=== PATIENT | male | born 1995 | race African-American/Black ===

== ENCOUNTER 2020-02-12 11:33 | Emergency (ER) | payer OTHER, MEDICAID, SELFPAY ==
--- NOTE | ~2020-02-12 | XR_ITS ---
EXAMINATION: XR hand RT min 3V EXAM DATE: 02/12/2020 12:00 INDICATION: Initial encounter following injury, with pain of the right hand. TECHNIQUE: Right hand frontal, lateral and oblique projections obtained and reviewed. There is no pr ior study for comparison. FINDINGS: There is acute closed posttraumatic inferiorly angulated and displaced right 5th metacarpal neck fracture. There is overlying soft tissue swelling. No other suspicious findings. IMPRESSION: Acute right boxer's fracture. Reviewed, dictated and finalized at location A. STAFF
--- NOTE | ~2020-02-12 | XR_ITS ---
EXAMINATION: XR hand RT 2V EXAM DATE: 02/12/2020 13:35 INDICATION: Post-reduction . TECHNIQUE: Frontal and lateral projections of the right hand. There are no prior studies for compar kendrick. FINDINGS: Acute closed posttraumatic right 5th metacarpal neck fracture with some volar angulation. Displacement has been somewhat reduced. A splint has been applied. IMPRESSION: Partially reduced right boxer's fracture. Reviewed, dictated and finalized at location A. F COMMAND AND CONTROL OFFICER
[2020-02-12 11:39] VITALS: BP 151/95; PULSE 71; RESP 18; TEMP 36.8; O2SAT 100
--- NOTE | 2020-02-12 12:28 | ED.UPPEXIN ---
HPI - Extremity Injury (Upper) General Chief Complaint: Extremity Injury, Upper Stated Complaint: hand injury Time Seen by Provider: 02/12/20 12:10 Source: patient Mode of arrival: ambulatory Limitations: no limitations History of Present Illness HPI narrative: This is a 24 year old male that presents to the ER for right hand pain after an injury 2 days ago. Reports he punched a wall. Reports since he has had increasing pain and swelling in the hand. Denies decreased range of motion or numbness. Related Data Home Medications Medication Instructions Recorded Confirmed amlodipine 5 mg PO DAILY 02/12/20 02/12/20 Allergies Allergy/AdvReac Type Severity Reaction Status Date / Time shellfish derived Allergy Unknown Swelling Verified 02/12/20 11:42 Review of Systems Review of Systems: Narrative: CONSTITUTIONAL: Denies fever MUSCULOSKELETAL: Reports joint pain, and myalgia. NEUROLOGIC: Denies numbness All systems reviewed & are unremarkable except as noted in HPI and below PMFSH Past Medical History Medical History (Updated 02/12/20 @ 15:00 by Millicent Mccullough PA-C) History of hypertension Social History Social History (Updated 02/12/20 @ 14:56 by Millicent Mccullough PA-C) Smoking status: Current every day smoker Gender identity (if verbalized by the patient): Male Exam Narrative: Exam Narrative: GENERAL: Well-appearing, well-nourished, and in no acute distress. HEAD: Normocephalic, atraumatic. EYES: EOMI. EXTREMITIES: Normal range of motion. Mild edema about the right hand over the fifth metacarpal dorsal surface, tender to palpation. Normal radial pulses. Normal sensation SKIN: Warm, dry, no rash. NEURO: No focal deficits. Alert and oriented x3. PSYCH: Normal mood and affect Course Vital Signs Vital signs: Vital Signs Temperature 98.2 F 02/12/20 11:39 Pulse Rate 71 02/12/20 11:39 Respiratory Rate 18 02/12/20 11:39 Blood Pressure 151/95 H 02/12/20 11:39 Pulse Oximetry 100 02/12/20 11:39 Temperature 98.2 F 02/12/20 11:39 Pulse Rate 71 02/12/20 11:39 Respiratory Rate 18 02/12/20 11:39 Blood Pressure 151/95 H 02/12/20 11:39 Pulse Oximetry 100 02/12/20 11:39 Procedures Orthopedic Fracture Reduction Fracture #1: Fracture Reduction date: 02/12/20 Fracture Reduction time: 14:56 Side: right Fracture Reduction Location: metacarpal Analgesia: nerve block Pre-Procedure Neuro Vascular Exam: normal Technique: direct manipulation Post Reduction X-rays Demonstrate: acceptable reduction Post-reduction neuro exam: intact Post-reduction vascular exam: intact Splint Applied: Yes Patient Tolerated Procedure: well and no complications Orthopedic Splinting/Casting Injury #1: Splinting/Casting Date: 02/12/20 Splinting/Casting Time: 14:59 Side: right Upper Extremity Injury Location: hand Upper Extremity Immobilizer: ulnar gutter Splint: customized in ED OCL: ulnar gutter Pre-Procedure Neuro Vascular Exam: normal Post-Procedure Neuro Vascular Exam: normal MDM - Extremity Injury (Upper) MDM Narrative Medical decision making narrative: Patient presents the emergency department for hand injury sustained 2 days ago. Right hand x-ray shows a boxer's fracture. Did attempt at reduction with postreduction x-ray showing partial reduction. Patient was placed in a splint. Spoke with Dr. Baron about patient and work-up who will follow-up in clinic. Patient is stable and felt appropriate for further outpatient evaluation. He was given warnings to return to the ER Imaging Data Radiologist's impression: ITS Impressions Hand X-Ray 02/12/20 12:03 IMPRESSION: Acute right boxer's fracture. Hand X-Ray 02/12/20 13:36 IMPRESSION: Partially reduced right boxer's fracture. Critical Care Time Critical Care Time Critical Care Arthur
[2020-02-12] MEDS: HYDROcodone/acetaminophen (*CRX) 5-325 MG TABLET 1 TAB PO (12:33)
[2020-02-12 15:15] VITALS: BP 148/88; PULSE 80; RESP 20; O2SAT 99
== END 2020-02-12 15:16 | disposition home or self-care (01) ==
PROVIDERS: Emergency Provider Emergency Medicine
DX: S62.336A Displaced fracture of neck of fifth metacarpal bone, right hand, initial encounter for closed fracture (principal); I10 Essential (primary) hypertension; F17.200 Nicotine dependence, unspecified, uncomplicated; W22.09XA Striking against other stationary object, initial encounter
CPT/HCPCS: 26605; 73120; 73130; 99285; A9270

== ENCOUNTER 2020-10-30 20:59 | Emergency (ER) | payer BC, SELFPAY ==
--- NOTE | ~2020-10-30 | CT_ITS ---
EXAMINATION: CT abdomen pelvis wo con DATE: 10/30/2020 23:03 INDICATION: Left flank pain for 7 days TECHNIQUE: Computed tomography (CT) of the abdomen and pelvis was performed without intravenous contr ast. Automated exposure control and iterative reconstruction technique were employed. Exam dose: 128 8.84 mGy-cm total exam DLP. COMPARISON: None. FINDINGS: The is an lung bases are clear. Normal heart size. No pericardial or pleural effusion. The liver, gallbladder, bile ducts, spleen, pancreas, pancreatic duct, and adrenal glands and kidneys are unremarkable. No urinary tract calculus or hydroureteronephrosis Normal caliber of the abdominal aorta. No intraperitoneal or retroperitoneal or pelvic mass lesion or adenopathy or ascites. Normal appendix. No bowel obstruction, bowel wall thickening, pneumatosis or intraperitoneal free air . Small fat-containing umbilical hernia. Degenerative spurring of the lower thoracic spine. IMPRESSION: No urinary tract calculus or hydroureteronephrosis Reviewed, dictated and finalized at Location [facility]. Reviewed, dictated and finalized at location A.
[2020-10-30 21:02] VITALS: BP 140/90; PULSE 93; RESP 16; TEMP 36.8; O2SAT 100
[2020-10-30 21:21] LABS: Add Urine Microscopic? NO; Appearance Urine Clear (Clear); Bilirubin Urine Negative (Negative); Blood Urine Negative (Negative); Color Urine Colorless (Yellow); Glucose Urine UA Negative (Negative); Ketones Urine Negative (Negative); Leukocyte Esterase Ur Negative LEU/UL (Negative); Nitrate Urine Negative (Negative); Protein Urine Negative (Negative); Specific Grav Ur 1.005 (1.001-1.035); Urobilinogen Urine Negative mg/dL (<2.0)
[2020-10-30 22:20] VITALS: BP 159/97; PULSE 97; RESP 18; O2SAT 99
--- NOTE | 2020-10-30 23:01 | PC.NURSE ---
Pt to CT via stretcher at this time.
--- NOTE | 2020-10-30 23:21 | ED.GENADULT ---
HPI - General Adult General Chief complaint: Urogenital-Male Stated complaint: poss uti Time Seen by Provider: 10/30/20 22:46 History of Present Illness HPI narrative: Patient a 25-year-old gentleman who presents the emergency department with chief complaint of tingling of the tip of his penis patient reports that for several days he has noticed that intermittently he is having a tingling sensation on the tip of his penis the patient states he has had no penile discharge but reports he has had one prior episode of a possible STI in the past patient states that he also had a urinary tract infection when this of the event occurred patient states that while this is been going on he is also had some discomfort in his left flank and it radiates to the left lower quadrant patient denies nausea vomiting denies fever chills Related Data Home Medications Medication Instructions Recorded Confirmed amlodipine 5 mg PO DAILY 02/12/20 02/12/20 Allergies Allergy/AdvReac Type Severity Reaction Status Date / Time shellfish derived Allergy Unknown Swelling Verified 10/30/20 22:23 Review of Systems Review of Systems: A 10 system review of systems was completed on the patient and is negative except for what is stated in the HPI. Nursing and ancillary documentation was reviewed. [facility] Past Medical History Medical History History of hypertension Social History Social History Smoking status: Current every day smoker Gender identity (if verbalized by the patient): Male Exam Narrative: GENERAL: Well-appearing, well-nourished, and in no acute distress. HEAD: Normocephalic, atraumatic. EYES: PERRLA and EOMI. ENT: Nares clear, no rhinorrhea or epistaxis. Mucous membranes moist. NECK: Supple. CHEST: Clear to auscultation. No respiratory distress. HEART: Regular rate and rhythm. No murmur heard. Normal peripheral pulses. ABDOMEN: Soft, nontender, nondistended, normal active bowel sounds. EXTREMITIES: Normal range of motion. No edema. SKIN: Warm, dry, no rash. NEURO: No focal deficits. Alert and oriented x3. PSYCH: Normal mood and affect. Course Vital Signs Vital signs: Vital Signs Temperature 36.8 C 10/30/20 21:02 Pulse Rate 93 10/30/20 21:02 Respiratory Rate 16 10/30/20 21:02 Blood Pressure 140/90 10/30/20 21:02 Pulse Oximetry 100 10/30/20 21:02 Temperature 36.8 C 10/30/20 21:02 Pulse Rate 97 10/30/20 22:20 Respiratory Rate 18 10/30/20 22:20 Blood Pressure 159/97 H 10/30/20 22:20 Pulse Oximetry 99 10/30/20 22:20 Medical Decision Making Vital Signs Vital Signs: Vital Signs Temperature 36.8 C 10/30/20 21:02 Pulse Rate 93 10/30/20 21:02 Respiratory Rate 16 10/30/20 21:02 Blood Pressure 140/90 10/30/20 21:02 Pulse Oximetry 100 10/30/20 21:02 Temperature 36.8 C 10/30/20 21:02 Pulse Rate 97 10/30/20 22:20 Respiratory Rate 18 10/30/20 22:20 Blood Pressure 159/97 H 10/30/20 22:20 Pulse Oximetry 99 10/30/20 22:20 Lab Data Result diagrams: 10/30/20 23:25 10/30/20 23:25 Labs: Lab Results 10/30/20 10/30/20 10/30/20 Range/Units 21:09 23:25 23:25 WBC 12.1 H (4.5-10.0) K/mm3 RBC 4.89 (4.6-6.20) M/mm3 Hgb 14.8 (14.0-18.0) g/dL Hct 44.1 (42.0-52.0) % MCV 90.2 (80-100) fl MCH 30.3 (26-34) pg MCHC 33.6 (32-36) g/dl RDW 12.3 (11.5-14.5) % Plt Count 256 (150-375) k/mm3 MPV 11.2 H (7.4-10.4) fl Immature Gran % (Auto) 0.3 (0-0.5) % Neut % (Auto) 68.7 (45.5-73.1) % Lymph % (Auto) 21.0 (18.3-44.2) % [place] % (Auto) 6.4 (2.6-8.5) % Eos % (Auto) 3.1 (0-4.4) % Baso % (Auto) 0.5 (0.2-1.2) % Lymph # (Auto) 2.54 (0.9-3.2) K/mm3 [place] # (Auto) 0.8 H (0.1-0.6) K/mm3 Eos # (Auto) 0.4 H (0-0.3) K/mm3 Baso # (Auto) 0
[2020-10-30 23:37] LABS: Basophils Absolute Auto 0.1 K/mm3 (0.0-0.1); Basophils Percent Auto 0.5 % (0.2-1.2); Eosinophils Absolute Auto 0.4 K/mm3 (0-0.3); Eosinophils Percent Auto 3.1 % (0-4.4); Hematocrit 44.1 % (42.0-52.0); Hemoglobin 14.8 g/dL (14.0-18.0); Immature Granulocyte Absolute 0.04 K/mm3 (0.00-0.031); Immature Granulocyte Percent A 0.3 % (0-0.5); Lymphocytes Absolute Auto 2.54 K/mm3 (0.9-3.2); Mean Corpuscular HGB Conc 33.6 g/dl (32-36); Mean Corpuscular Hemoglobin 30.3 pg (26-34); Mean Corpuscular Volume 90.2 fl (80-100); Mean Platelet Volume 11.2 fl (7.4-10.4); Monocytes Absolute Auto 0.8 K/mm3 (0.1-0.6); Monocytes Percent Auto 6.4 % (2.6-8.5); Neutrophils Absolute Auto 8.3 K/mm3 (1.3-6.7); Neutrophils Percent Auto 68.7 % (45.5-73.1); Platelet Count Result 256 k/mm3 (150-375); Red Blood Count 4.89 M/mm3 (4.6-6.20); Red Cell Distribution Width 12.3 % (11.5-14.5); White Blood Count 12.1 K/mm3 (4.5-10.0)
[2020-10-30 23:49] LABS: Alanine Aminotransferase 37 U/L (4-50); Albumin Level 4.8 g/dL (3.5-5.1); Alkaline Phosphatase 88 U/L (38-126); Anion Gap 12 mmol/L (8-16); Aspartate Amino Transferase 40 U/L (17-59); Bilirubin,Total 0.4 mg/dL (0.2-1.3); Blood Urea Nitrogen 17 mg/dL (9-20); Calcium 9.8 mg/dL (8.4-10.2); Carbon Dioxide 26 mmol/L (22-30); Chloride 102 mmol/L (98-107); Estimated CRCL calculation 98 ml/min; Estimated Glomerular Filt Rate > 60; Glucose 104 mg/dL (65-110); Lipase 47 U/L (23-300); Potassium 4.3 mmol/L (3.4-5.0); Sodium 140 mmol/L (137-145)
[2020-10-31] MEDS: cefTRIAXone 1 GM VIAL 0.5 GM IM (01:01)
[2020-10-31] MEDS: LIDOCAINE HCL 1% LOCAL INJ 20 ML VIAL (01:01)
[2020-10-31 01:11] VITALS: BP 151/94; PULSE 82; RESP 16; O2SAT 98
== END 2020-10-31 01:15 | disposition home or self-care (01) ==
PROVIDERS: Family Medicine; Emergency Provider Emergency Medicine
DX: R30.0 Dysuria (principal); F17.210 Nicotine dependence, cigarettes, uncomplicated
CPT/HCPCS: 36415; 74176; 80053; 81003; 83690; 85025; 87491; 87591; 96372; 99284; J0696

== ENCOUNTER 2021-05-10 13:52 | Inpatient (IN) | payer BC, SELFPAY ==
[2021-05-10] VITALS (21 sets, daily range): BP systolic 135–173; BP diastolic 81–117; PULSE 101–123; RESP 13–31; TEMP 36.8–37.6; O2SAT 91–100; BMI 38.9
--- NOTE | ~2021-05-10 | CT_ITS ---
EXAMINATION: CT diagnostic chest wo con EXAM DATE: 05/10/2021 20:57 INDICATION: Shortness of breath for one week. Hypoxia, wheezing, cough. TECHNIQUE: Spiral CT of the chest without contrast. Axial, coronal and sagittal images of the chest were reviewed. Coronal maximum intensity pixel images of chest reviewed. The dose-length product ( DLP) for this examination was 601.44 mGy-cm. The exposure was tailored according to patient size (au to mA exposure control), and iterative reconstruction (ASIR) was used as additional dose reduction te [place]nique. There is no prior study for comparison. FINDINGS: Some regions of vague peripheral right lung groundglass airspace disease, nonspecific pneu monitis but most likely viral pneumonia. There are no pleural or pericardial effusions. Tracheobro nchial tree is patent. There is no mediastinal, hilar or axillary lymphadenopathy. There is no pn eumothorax. Heart normal in size. No evidence of coronary arterial calcification. Upper abdomen is unremarkable. There is mild thoracic spondylosis without osteoblastic or osteolytic lesions iden tified. IMPRESSION: Scattered vague regions right lung peripheral groundglass airspace disease suspicious for COVID pneumonia. Clinical correlation. Reviewed, dictated and finalized at location G.
--- NOTE | ~2021-05-10 | XR_ITS ---
EXAMINATION: XR chest 2V 05/10/2021 14:27 INDICATION: Cough and congestion. Chest pain. PROCEDURE: 2 view chest COMPARISON: No prior studies for comparison. FINDINGS: The lungs are clear. The cardiomediastinal silhouette is within normal limits. There are no pleural effusions. There is no pneumothorax suspected. IMPRESSION: 1: NO ACUTE CARDIOPULMONARY DISEASE. Reviewed, dictated and finalized at location A.
[2021-05-10] MEDS: IPRATROPIUM BR 0.02% INH SOLN 0.5 MG/2.5 ML VIAL INHALATION ×2 (15:25→19:21)
[2021-05-10] MEDS: ALBUTEROL SULFATE NEB 2.5 MG/0.5 ML INH 5 MG INHALATION ×2 (15:25→19:21)
[2021-05-10] MEDS: IPRATROPIUM BR 0.02% INH SOLN 0.5 MG/2.5 ML VIAL 1.5 MG INHALATION (16:09)
[2021-05-10] MEDS: ALBUTEROL SULFATE NEB 2.5 MG/0.5 ML INH 15 MG INHALATION (16:10)
[2021-05-10] MEDS: predniSONE 20 MG TABLET 60 MG PO (16:22)
--- NOTE | 2021-05-10 16:46 | ED.SOB ---
HPI - SOB/Dyspnea General Chief Complaint: Shortness of Breath/Dyspnea Stated Complaint: hard time breathing Time Seen by Provider: 05/10/21 15:05 History of Present Illness HPI Narrative: Patient is a 25-year-old male who presents ER with dyspnea. Ongoing over the last week. Associate with cough. Worsening over last 2 days. Swab himself for Covid yesterday and it was negative. Denies fevers or chills. No known sick contacts. No alleviating factors. Dyspnea is worse with exertion but does have some at rest. Related Data Home Medications Medication Instructions Recorded Confirmed No Home Medications 05/10/21 05/10/21 Allergies Allergy/AdvReac Type Severity Reaction Status Date / Time shellfish derived Allergy Unknown Swelling Verified 05/10/21 15:21 Review of Systems Review of Systems: All systems reviewed & are unremarkable except as noted in HPI and below Constitutional: Constitutional: Denies chills, Denies fever(s) and Denies weakness ENT: Denies nasal congestion and Denies sore throat Cardiovascular: Cardiovascular: Denies chest pain, Denies rapid heart rate and Denies radiating jaw, neck or arm pain Respiratory: Respiratory: Reports cough, Reports dyspnea and Reports wheezing Gastrointestinal: Gastrointestinal: Denies abdominal pain, Denies nausea and Denies vomiting PMFSH Past Medical History Medical History History of hypertension Family History Family History (Updated 05/10/21 @ 19:54 by Merle Quiroz RN) Mother Hypertension Sibling Hypertension Grandparent Diabetes mellitus Social History Social History Smoking status: Former smoker Alcohol intake: never Substance use: never Gender identity (if verbalized by the patient): Male Spiritual care concerns: No Exam Narrative: GENERAL: Well-appearing, well-nourished, and in no acute distress. HEAD: Normocephalic, atraumatic. ENT: Mucous membranes moist. CHEST: Wheezing in the anterior and posterior lungs on left side. Diminished lung sounds on the right. HEART: Regular rate and rhythm. Normal peripheral pulses. ABDOMEN: Soft, nontender, nondistended. EXTREMITIES: Normal range of motion. No edema. SKIN: Warm, dry, no rash. NEURO: No focal deficits. Alert and oriented x3. PSYCH: Normal mood and affect. Course Course Emergency Course: Patient still with wheezing after the nebulizer treatment. An hour-long was then ordered. Patient now has wheezing bilaterally. Patient is also dropping his pulse oximeter readings down into the upper 80s while sitting in bed. I have ambulated the patient personally in ER and the lowest his oxygen saturation is gotten was 87%. Recommend admission for observation and continuous nebulizer treatments. Patient was placed on 1 L of nasal cannula oxygen. Vital Signs Vital signs: Vital Signs Temperature 98.2 F 05/10/21 14:04 Pulse Rate 123 H 05/10/21 14:04 Respiratory Rate 19 05/10/21 14:04 Blood Pressure 147/81 H 05/10/21 14:04 Pulse Oximetry 93 05/10/21 14:04 Temperature 98 F 05/11/21 04:00 Pulse Rate 92 05/11/21 07:18 Respiratory Rate 17 05/11/21 07:18 Blood Pressure 126/71 05/11/21 04:00 Pulse Oximetry 93 05/11/21 07:17 MDM - SOB/Dyspnea Lab Data Result diagrams: 05/11/21 05:37 05/11/21 05:37 Labs: Lab Results 05/10/21 05/10/21 05/10/21 Range/Units 17:59 17:59 17:59 WBC 15.2 H (4.5-10.0) K/mm3 RBC 5.15 (4.6-6.20) M/mm3 Hgb 15.6 (14.0-18.0) g/dL Hct 46.2 (42.0-52.0) % MCV 89.7 (80-100) fl MCH 30.3 (26-34) pg MCHC 33.8 (32-36) g/dl RDW 12.5 (11.5-14.5) % Plt Count 277 (150-375) k/mm3 MPV 10.5 H (7.4-10.4) fl Immature Gran % (Auto) 0.5 (0-0.5) % Neut % (Auto) 76.3 H (45.5-73.1) % Lymph % (Auto) 12.6 L (18.3-44.2) % [place]
[2021-05-10 18:05] LABS: Basophils Absolute Auto 0.1 K/mm3 (0.0-0.1); Basophils Percent Auto 0.6 % (0.2-1.2); Eosinophils Absolute Auto 0.8 K/mm3 (0-0.3); Eosinophils Percent Auto 5.4 % (0-4.4); Hematocrit 46.2 % (42.0-52.0); Hemoglobin 15.6 g/dL (14.0-18.0); Immature Granulocyte Absolute 0.07 K/mm3 (0.00-0.031); Immature Granulocyte Percent A 0.5 % (0-0.5); Lymphocytes Absolute Auto 1.92 K/mm3 (0.9-3.2); Lymphocytes Percent Auto 12.6 % (18.3-44.2); Mean Corpuscular HGB Conc 33.8 g/dl (32-36); Mean Corpuscular Hemoglobin 30.3 pg (26-34); Mean Corpuscular Volume 89.7 fl (80-100); Mean Platelet Volume 10.5 fl (7.4-10.4); Monocytes Absolute Auto 0.7 K/mm3 (0.1-0.6); Monocytes Percent Auto 4.6 % (2.6-8.5); Neutrophils Absolute Auto 11.6 K/mm3 (1.3-6.7); Neutrophils Percent Auto 76.3 % (45.5-73.1); Platelet Count Result 277 k/mm3 (150-375); Red Blood Count 5.15 M/mm3 (4.6-6.20); Red Cell Distribution Width 12.5 % (11.5-14.5); White Blood Count 15.2 K/mm3 (4.5-10.0)
[2021-05-10 18:18] LABS: Anion Gap 9 mmol/L (8-16); Blood Urea Nitrogen 13 mg/dL (9-20); Calcium 9.2 mg/dL (8.4-10.2); Carbon Dioxide 28 mmol/L (22-30); Chloride 101 mmol/L (98-107); Estimated CRCL calculation 124 ml/min; Estimated Glomerular Filt Rate > 60; Glucose 130 mg/dL (65-110); Potassium 3.6 mmol/L (3.4-5.0); Sodium 138 mmol/L (137-145)
[2021-05-10 18:46] LABS: SARS-CoV-2 RNA PCR Negative
--- NOTE | 2021-05-10 19:37 | PM.IMHP ---
H&P: HPI History of Present Illness Date/Time: 05/10/21 19:37 Chief Complaint: 25 years old male presented to the hospital with shortness of breath started 1 week ago worsening gradually associated with cough denies fever or chills shortness of breath worsening with activity patient had COVID-19 test at home was negative COVID-19 test ER was negative patient was found to have hypoxia on presentation required oxygen and nebulizer treatment patient condition did not improve decision was made to proceed with admission for further evaluation and treatment of wheezing associated with hypoxia Patient has history of hypertension he ran out of his medication Review of Systems Review of Systems: All systems reviewed & are unremarkable except as noted in HPI and below PMFSH Past Medical History Medical History History of hypertension Family History Family History (Updated 05/10/21 @ 19:54 by Merle Quiroz RN) Mother Hypertension Sibling Hypertension Grandparent Diabetes mellitus Social History Social History Smoking status: Former smoker Alcohol intake: never Substance use: never Gender identity (if verbalized by the patient): Male Spiritual care concerns: No Meds Home Medications and Allergies Home Medications Medication Instructions Recorded Confirmed Type No Home Medications 05/10/21 05/10/21 History Allergies Allergy/AdvReac Type Severity Reaction Status Date / Time shellfish derived Allergy Unknown Swelling Verified 05/10/21 15:21 Vital Signs Vital Signs - 24 hr 05/10/21 14:04 05/10/21 15:21 05/10/21 15:22 Temperature 98.2 F Pulse Rate 123 H 117 H 111 H Respiratory Rate 19 16 Blood Pressure 147/81 H Pulse Oximetry 93 92 05/10/21 15:23 05/10/21 15:26 05/10/21 15:30 Temperature Pulse Rate 113 H 116 H 113 H Respiratory Rate 20 16 13 Blood Pressure 158/117 H Pulse Oximetry 92 100 05/10/21 15:32 05/10/21 16:10 05/10/21 16:30 Temperature Pulse Rate 101 H 109 H Respiratory Rate 18 18 Blood Pressure 173/94 H Pulse Oximetry 100 99 05/10/21 17:00 05/10/21 17:31 05/10/21 17:49 Temperature Pulse Rate 119 H 111 H Respiratory Rate 31 H 22 H Blood Pressure Pulse Oximetry 94 91 92 05/10/21 17:51 05/10/21 18:01 05/10/21 18:02 Temperature Pulse Rate 117 H 111 H 118 H Respiratory Rate 16 18 21 H Blood Pressure 155/102 H 135/97 H Pulse Oximetry 94 93 93 05/10/21 18:13 05/10/21 18:24 05/10/21 19:21 Temperature Pulse Rate 110 H Respiratory Rate 18 Blood Pressure Pulse Oximetry 94 97 94 05/10/21 19:29 Temperature Pulse Rate 115 H Respiratory Rate 20 Blood Pressure Pulse Oximetry Exam Const: General: in distress HENMT: Mouth: Yes dry mucous membranes Eyes: Sclera: sclerae normal Neck: Neck: no JVD Resp: Auscultation: wheezes and diminished lung sounds Cardio: Rate: regular rate and tachycardic Rhythm: regular rhythm GI: Inspection: non-distended GI Palp: Yes Soft to palpation Auscultation: normal bowel sounds Skin: General skin exam: normal color Neuro: Speech: normal speech Motor exam (neuro): 5/5 motor strength present throughout Sensory Exam: normal sensation Extrem: General: normal to inspection Right upper extremity: normal to inspection Left upper extremity: normal to inspection Right lower extremity: normal to inspection Left lower extremity: normal to inspection Psych: Mental Status: mental status grossly normal H&P: Results Labs Labs: Short CBC 05/10/21 Range/Units 17:59 WBC 15.2 H (4.5-10.0) K/mm3 Hgb 15.6 (14.0-18.0) g/dL Hct 46.2 (42.0-52.0) % Plt Count 277 (150-375) k/mm3 [facility] 05/10/21 17:59 Sodium 138 Potassium 3.6 Chloride 101 Carbon Dioxide 28 BUN 13 Creatinine 1.10 Glucose 130 H Calcium 9.2
--- NOTE | 2021-05-10 19:49 | ADMGEN ---
This patient, Robbie Saldaña, was admitted to 2 Medical Room 259-01. Patient/family oriented to hospital policies and general routines including ID bracelet, bed and alarms, visiting hours, pain management, procedures, bathroom and other care routines, personal items, smoking policy, room service/diet, and visiting hours. Information on how to activate the Rapid Response Team has been discussed. Patient/Family are encouraged to report perceived risks to care and to ask questions if they do not understand what they are told or what they should do.
[2021-05-10] MEDS: SODIUM CHLORIDE 0.9% IV 1,000 ML 100 ML IV CONT (20:09)
[2021-05-10 20:42] LABS: NT Pro B Type Natriuretic Pept < 11 pg/mL (5-100)
[2021-05-10] MEDS: amLODIPine BESYLATE 5 MG TABLET PO (21:05)
[2021-05-10] MEDS: cefTRIAXone 2 GM in SODIUM CHLORIDE 0.9% IV 100 ML 200 ML IVPB (21:05)
[2021-05-10] MEDS: guaiFENesin 12 HR 600 MG TABCR PO (21:06)
[2021-05-10] MEDS: methylPREDNISolone SOD SUCC 40 MG VIAL IV PUSH (21:06)
[2021-05-11] VITALS (18 sets, daily range): BP systolic 126–174; BP diastolic 71–93; PULSE 87–126; RESP 14–20; TEMP 36.3–37.1; O2SAT 91–100
[2021-05-11] MEDS: ALBUTEROL SULFATE NEB 2.5 MG/0.5 ML INH 5 MG INHALATION ×4 (02:07→20:11)
[2021-05-11] MEDS: IPRATROPIUM BR 0.02% INH SOLN 0.5 MG/2.5 ML VIAL INHALATION ×4 (02:07→20:11)
[2021-05-11] MEDS: methylPREDNISolone SOD SUCC 40 MG VIAL IV PUSH ×3 (06:01→21:04)
[2021-05-11] MEDS: SODIUM CHLORIDE 0.9% IV 1,000 ML 100 ML IV CONT ×2 (06:01→15:22)
[2021-05-11 06:09] LABS: Basophils Percent Auto 0.2 % (0.2-1.2); Eosinophils Absolute Auto 0.1 K/mm3 (0-0.3); Eosinophils Percent Auto 0.4 % (0-4.4); Hematocrit 45.6 % (42.0-52.0); Hemoglobin 15.1 g/dL (14.0-18.0); Immature Granulocyte Absolute 0.15 K/mm3 (0.00-0.031); Immature Granulocyte Percent A 0.9 % (0-0.5); Lymphocytes Absolute Auto 1.24 K/mm3 (0.9-3.2); Lymphocytes Percent Auto 7.1 % (18.3-44.2); Mean Corpuscular HGB Conc 33.1 g/dl (32-36); Mean Corpuscular Hemoglobin 30.1 pg (26-34); Mean Platelet Volume 11.1 fl (7.4-10.4); Monocytes Absolute Auto 0.4 K/mm3 (0.1-0.6); Neutrophils Absolute Auto 15.7 K/mm3 (1.3-6.7); Neutrophils Percent Auto 89.4 % (45.5-73.1); Platelet Count Result 295 k/mm3 (150-375); Red Blood Count 5.01 M/mm3 (4.6-6.20); Red Cell Distribution Width 12.6 % (11.5-14.5); White Blood Count 17.5 K/mm3 (4.5-10.0)
[2021-05-11 06:13] LABS: Alanine Aminotransferase 29 U/L (4-50); Albumin Level 4.6 g/dL (3.5-5.1); Alkaline Phosphatase 98 U/L (38-126); Anion Gap 11 mmol/L (8-16); Aspartate Amino Transferase 33 U/L (17-59); Bilirubin,Total 0.4 mg/dL (0.2-1.3); Blood Urea Nitrogen 14 mg/dL (9-20); Calcium 9.2 mg/dL (8.4-10.2); Carbon Dioxide 24 mmol/L (22-30); Chloride 103 mmol/L (98-107); Estimated CRCL calculation 148 ml/min; Estimated Glomerular Filt Rate > 60; Glucose 165 mg/dL (65-110); Potassium 4.3 mmol/L (3.4-5.0); Sodium 138 mmol/L (137-145)
[2021-05-11] MEDS: amLODIPine BESYLATE 5 MG TABLET PO (09:18)
[2021-05-11] MEDS: guaiFENesin 12 HR 600 MG TABCR PO ×2 (09:19→21:03)
[2021-05-11] MEDS: ENOXAPARIN 40 MG/0.4 ML SYRINGE SUB-Q (09:20)
[2021-05-11 10:29] LABS: Lactate Dehydrogenase 333 U/L (313-618)
[2021-05-11 10:50] LABS: Erythrocyte Sedimentation Rate 12 mm/hr (0-20)
--- NOTE | 2021-05-11 12:28 | PM.IMPN ---
Progress Note: A&P Assessment and Plan (1) Shortness of breath: Code(s): R06.02 - Shortness of breath Status: Acute Assessment and Plan: - Concern for possible COVID due to Ground glass appearance on the CT Scan. - Continue Nebulizer treatments, steroids, and antibiotics - Blood cultures pending. - Inflammatory markers of Ferritin, LDH, CRP, and Sed rate were performed and are otherwise negative. - Urine for Legionella pending - Flu swab pending - COVID is still pending. - Apnea Link ordered as pt is noted to be apneic on my entry into the room. (2) Acute hypoxemic respiratory failure: Code(s): J96.01 - Acute respiratory failure with hypoxia Status: Acute Assessment and Plan: - Etiology viral vs. bacterial. - Concern for possible COVID due to Ground glass appearance on the CT Scan. - Continue Nebulizer treatments, steroids, and antibiotics - Blood cultures pending. - Inflammatory markers of Ferritin, LDH, CRP, and Sed rate were performed and are otherwise negative. - Urine for Legionella pending - Flu swab pending - COVID is still pending. - Apnea Link ordered as pt is noted to be apneic on my entry into the room. (3) Tachycardia: Code(s): R00.0 - Tachycardia, unspecified Status: Acute Assessment and Plan: - Secondary to above monitor pending CT scan of the chest - May need Beta Blockade as pressures are also elevated and the pt. is an obese Male. Will monitor. - In addition, will consider ECHO. (4) Hypertension: Qualifiers: Hypertension type: unspecified Qualified Code(s): I10 - Essential (primary) hypertension Code(s): I10 - Essential (primary) hypertension Status: Acute Assessment and Plan: - AA Male with persistently elevated BP's. Start CCB, Amlodipine at 5 mg po daily. - Continue to monitor. Time Spent With Patient Time with patient: 15 - 25 minutes Subjective Date/time seen: 05/11/21 0900 This pt. was examined at the bedside in interval assessment. He states he is feeling a little better today. He remains on 1L oxygen. Upon my entry into the room, the pt. was sleeping and was noted to have likely ROB with evidence of him gasping and snoring. His WBC today have trended upward and he has remained intermittently tachycardic and also has elevated BP. He will be started on BP meds today and he will have additional testing. He denies CP, N/V/D, and states he is not as dyspneic as he has been. He denies a cough at this time. Review of Systems Review of Systems: A full 12 point ROS was performed and is otherwise negative with exception of what is noted in HPI. All systems reviewed & are unremarkable except as noted in HPI and below Exam Const: General: no acute distress Other: Pt. noted to have what appears to be sleep apnea upon my entry into the room HENMT: Mouth: Yes moist mucous membranes Eyes: Sclera: sclerae normal Neck: Neck: supple and no JVD Lymphatic: lymphadenopathy not noted Resp: Auscultation: rhonchi and diminished lung sounds Cardio: Rate: tachycardic Rhythm: regular rhythm GI: GI Palp: Yes Soft to palpation and No Tenderness to palpation present (GI) Auscultation: normal bowel sounds Skin: General skin exam: normal color and no rashes or lesions noted Neuro: General: gait normal Speech: normal speech Motor exam (neuro): 5/5 motor strength present throughout and Normal motor muscle tone present throughout Extrem: General: normal to inspection Right upper extremity: normal to inspection Left upper extremity: normal to inspection Right lower extremity: normal to inspection Left lower extremity: normal to inspection Psych: Mental Status: mental status grossly normal Thought content: Yes Normal thought content present Objective Data Vital Signs Vital Signs: Vital Signs - 24 hr 05/10/21 14:04 05/10/21 15:21 05/10/21 15:22 Temperature 98.2 F Pulse Rate 123 H 117 H 111
--- NOTE | 2021-05-11 14:04 | PC.NURSE ---
On 05/11/21, the student, [Jonnie Sahu & Ada Estrada], provided care and completed [facility] documentation on this patient. I have reviewed the student's documentation and agree with the findings.
[2021-05-11] MEDS: cefTRIAXone 2 GM in SODIUM CHLORIDE 0.9% IV 100 ML 200 ML IVPB (21:03)
[2021-05-12] VITALS (8 sets, daily range): BP systolic 139–149; BP diastolic 68–86; PULSE 81–118; RESP 17–20; TEMP 35.8–36.3; O2SAT 94–97
[2021-05-12] MEDS: SODIUM CHLORIDE 0.9% IV 1,000 ML 100 ML IV CONT (00:24)
--- NOTE | 2021-05-12 03:22 | PCRCNOTE ---
Scheduled UPD for 0200 on 05/12 was not given due to pt being on apnea link.
[2021-05-12] MEDS: methylPREDNISolone SOD SUCC 40 MG VIAL IV PUSH (05:53)
[2021-05-12 05:55] LABS: Basophils Absolute Auto 0.1 K/mm3 (0.0-0.1); Basophils Percent Auto 0.2 % (0.2-1.2); Hematocrit 43.8 % (42.0-52.0); Hemoglobin 14.7 g/dL (14.0-18.0); Immature Granulocyte Absolute 0.53 K/mm3 (0.00-0.031); Immature Granulocyte Percent A 1.8 % (0-0.5); Lymphocytes Absolute Auto 1.72 K/mm3 (0.9-3.2); Lymphocytes Percent Auto 5.7 % (18.3-44.2); Mean Corpuscular HGB Conc 33.6 g/dl (32-36); Mean Corpuscular Hemoglobin 30.6 pg (26-34); Mean Corpuscular Volume 91.1 fl (80-100); Mean Platelet Volume 10.8 fl (7.4-10.4); Monocytes Absolute Auto 1.3 K/mm3 (0.1-0.6); Monocytes Percent Auto 4.4 % (2.6-8.5); Neutrophils Absolute Auto 26.6 K/mm3 (1.3-6.7); Neutrophils Percent Auto 87.9 % (45.5-73.1); Platelet Count Result 305 k/mm3 (150-375); Red Blood Count 4.81 M/mm3 (4.6-6.20); Red Cell Distribution Width 12.9 % (11.5-14.5); White Blood Count 30.3 K/mm3 (4.5-10.0)
[2021-05-12 06:10] LABS: Alanine Aminotransferase 32 U/L (4-50); Albumin Level 4.5 g/dL (3.5-5.1); Alkaline Phosphatase 95 U/L (38-126); Anion Gap 9 mmol/L (8-16); Aspartate Amino Transferase 33 U/L (17-59); Bilirubin,Total 0.3 mg/dL (0.2-1.3); Blood Urea Nitrogen 16 mg/dL (9-20); Calcium 9.4 mg/dL (8.4-10.2); Carbon Dioxide 26 mmol/L (22-30); Chloride 104 mmol/L (98-107); Estimated CRCL calculation 134 ml/min; Estimated Glomerular Filt Rate > 60; Glucose 172 mg/dL (65-110); Potassium 4.6 mmol/L (3.4-5.0); Sodium 139 mmol/L (137-145)
[2021-05-12] MEDS: amLODIPine BESYLATE 5 MG TABLET PO (09:06)
[2021-05-12] MEDS: guaiFENesin 12 HR 600 MG TABCR PO (09:06)
[2021-05-12] MEDS: ENOXAPARIN 40 MG/0.4 ML SYRINGE SUB-Q (09:06)
[2021-05-12] MEDS: IPRATROPIUM BR 0.02% INH SOLN 0.5 MG/2.5 ML VIAL INHALATION ×2 (09:47→13:34)
[2021-05-12] MEDS: ALBUTEROL SULFATE NEB 2.5 MG/0.5 ML INH 5 MG INHALATION ×2 (09:49→13:33)
--- NOTE | 2021-05-12 09:55 | PM.DS ---
DS: Admitting Diagnosis Discharge Date 05/12/2021 Admitting Diagnosis 1) Dyspnea 2) Acute Hypoxemic Respiratory Failure 3) Tachycardia DS: Discharge Diagnosis Discharge Diagnosis (1) Shortness of breath: Code(s): R06.02 - Shortness of breath Status: Acute Assessment and Plan: - Concern for possible COVID due to Ground glass appearance on the CT Scan; COVID NEGATIVE ON 05/10/21. - Continue Nebulizer treatments, steroids, and antibiotics - Blood cultures pending. - Inflammatory markers of Ferritin, LDH, CRP, and Sed rate were performed and are otherwise negative. - Urine for Legionella pending - Flu swab pending - COVID is still pending. - Apnea Link ordered as pt is noted to be apneic on my entry into the room. - 05/12/21, date of discharge - Patient's dyspnea has improved and oxygen has been weaned to room air. He has maintained his saturations on room air and does not require home supplemental oxygen. Legionella culture and Respiratory viral culture are both still pending. Appreciate PCP's attention to following up once discharged. Pt. has greatly improved with his treatment of IV solumedrol which is now being changed to Prednisone orally, and will have a 12 day taper at discharge. In addition he has received 2 doses of Ceftriaxone, so we will continue abx as outpatient with Cefdinir for a total of 8 additional days. He will be prescirbed inhalers of Atrovent and Albuterol to use at home as well. He also failed his apnea link testing indicating obstructive sleep apnea with 15 apneas, mailny obstructive in nature, and 72 desaturations secondary to the apnea causing him to have 170 minutes below 90% SPO2, but none below 88%. He will be referred to Pulmonology as an outpatient for home CPAP initiation. (2) Acute hypoxemic respiratory failure: Code(s): J96.01 - Acute respiratory failure with hypoxia Status: Acute Assessment and Plan: - Etiology viral vs. bacterial. - Concern for possible COVID due to Ground glass appearance on the CT Scan. - Continue Nebulizer treatments, steroids, and antibiotics - Blood cultures pending. - Inflammatory markers of Ferritin, LDH, CRP, and Sed rate were performed and are otherwise negative. - Urine for Legionella pending - Flu swab pending - COVID is still pending. - Apnea Link ordered as pt is noted to be apneic on my entry into the room. - 05/12/21, date of discharge - Patient's dyspnea has improved and oxygen has been weaned to room air. He has maintained his saturations on room air and does not require home supplemental oxygen. Legionella culture and Respiratory viral culture are both still pending. Appreciate PCP's attention to following up once discharged. Pt. has greatly improved with his treatment of IV solumedrol which is now being changed to Prednisone orally, and will have a 12 day taper at discharge. In addition he has received 2 doses of Ceftriaxone, so we will continue abx as outpatient with Cefdinir for a total of 8 additional days. He will be prescirbed inhalers of Atrovent and Albuterol to use at home as well. He also failed his apnea link testing indicating obstructive sleep apnea with 15 apneas, mailny obstructive in nature, and 72 desaturations secondary to the apnea causing him to have 170 minutes below 90% SPO2, but none below 88%. He will be referred to Pulmonology as an outpatient for home CPAP initiation. (3) Tachycardia: Code(s): R00.0 - Tachycardia, unspecified Status: Acute Assessment and Plan: - Secondary to above monitor pending CT scan of the chest - May need Beta Blockade as pressures are also elevated and the pt. is an obese Male. Will monitor. - In addition, will consider ECHO. - 05/12/21, date of discharge - Would recommend outpatient ECHO to assess for LVSF as pt, does have ROB per apnea link testing. As pt.s respiratory status has returned to baseline, he will be referred to his PCP for follow up and ordering
[2021-05-12] MEDS: predniSONE 20 MG TABLET 40 MG PO (10:26)
== END 2021-05-12 15:10 | disposition home or self-care (01) | DRG 133 ==
LOC: ANHED 15:28 → ANH2MED 18:45
PROVIDERS: Internal Medicine; Admitting Provider Internal Medicine; Emergency Provider Emergency Medicine; PCP Emergency Medicine; Visit Provider Nurse Practitioner Adult Health
DX: J96.01 Acute respiratory failure with hypoxia (principal); R00.0 Tachycardia, unspecified; Z20.822 Contact with and (suspected) exposure to COVID-19; Z87.891 Personal history of nicotine dependence; I10 Essential (primary) hypertension; G47.30 Sleep apnea, unspecified
CPT/HCPCS: 36415; 71046; 71250; 80048; 80053; 82728; 83615; 83735; 83880; 85025; 85652; 86140; 87040; 87070; 87081; 87205; 94640; 94762; 99285; A9270; C9803; G0378; G0379; J0696; J1650; J2920; J7030; J7512; U0003; U0005